=== PATIENT | male | born 1965 | race Hispanic/Latino ===

== ENCOUNTER → 2017-10-03 | Outpatient (CLI) | payer MEDICAID | LOC: SLR 11:00 | PROVIDERS: ATTEND Specialist | DX: G47.30 Sleep apnea, unspecified (principal) | CPT/HCPCS: 95810 ==

== ENCOUNTER 2017-10-31 06:22 | Day surgery (SDC) | payer MEDICAID ==
[2017-10-31] MEDS ORDERED: HURRICAINE ONE 20% TOPICAL SPRAY MM ×2 (07:35→07:54)
[2017-10-31] MEDS ORDERED: DIPRIVAN 10 MG/ML IV ONE ×2 (07:38)
[2017-10-31] MEDS ORDERED: XYLOCAINE 1% 20 mL ONE (07:39)
--- NOTE | 2017-10-31 07:50 | Anesthesia Day of Surgery ---
Anesthesia Day of Surgery - Day of Surgery Patient H&P Reviewed: Yes Patient is NPO: Yes Beta Blockers: Yes Cardiac Clearance: No Pulmonary Clearance: No Don's Test: N/A
--- NOTE | 2017-10-31 07:50 | Anesthesia Consultation ---
Anesthesia Consult and Med Hx Date of service: 10/31/17 - Airway Anesthetic Teeth Evaluation: Chipped ROM Head & Neck: Adequate Mental/Hyoid Distance: Inadequate Mallampati Class: Class II Intubation Access Assessment: Possibly Difficult - Pulmonary Exam CTA: Yes - Cardiac Exam Cardiac Exam: RRR - Pre-Operative Health Status ASA Pre-Surgery Classification: ASA3 Proposed Anesthetic Plan: General, IV Sedation - Pulmonary Hx Smoking: No Hx Asthma: No Hx Respiratory Symptoms: No SOB: No COPD: No Home Oxygen Therapy: No Hx Pneumonia: No Hx Sleep Apnea: No - Cardiovascular System Hx Hypertension: Yes Hx Coronary Artery Disease: Yes Hx Heart Attack/AMI: Yes (2013) Hx Angina: Yes Hx Percutaneous Transluminal Coronary Angioplasty (PTCA): No Hx Cardia Arrhythmia: No Hx Pacemaker: No Hx Internal Defibrillator: No Hx Valvular Heart Disease: No Hx Heart Murmur: No Hx Peripheral Vascular Disease: No - Central Nervous System Hx Neuromuscular Disorder: No Hx Seizures: No CVA: No Hx Back Pain: No Hx Psychiatric Problems: Yes - Gastrointestinal Hx Ulcer: No - Endocrine Hx Renal Disease: No Hx End Stage Renal Disease: No Hx Cirrhosis: No Hx Liver Disease: No Hx Insulin Dependent Diabetes: No Hx Non-Insulin Dependent Diabetes: Yes Hx Hyperthyroidism: Yes - Hematic Hx Anemia: No Hx Sickle Cell Disease: No - Other Systems Hx Alcohol Use: No Hx Substance Use: No Hx Cancer: No Hx Obesity: Yes
--- NOTE | 2017-10-31 07:54 | Post Anesthesia Evaluation ---
- Post Anesthesia Evaluation Airway Patent: Yes
[2017-10-31] MEDS ORDERED: NACL 0.9% 1000 ML 1,000 ML IV SCH (08:00)
--- NOTE | 2017-10-31 08:11 | Discharge Summary ---
Providers - Providers Attending physician: YONAS STONER Primary care physician: CAIN NAILS Hospitalization Reason for admission: egd Condition: Good Procedures: egd Hospital course: 52 y.o. male with hx of dyspepsia and morbid obesity presented to endoscopy for EGD. He tolerated the procedure well. Disposition: - TO HOME OR SELFCARE Core Measure Documentation - Palliative Care Palliative Care/ Comfort Measures: Not Applicable - Core Measures Any of the following diagnoses?: none Exam - Physical Exam Narrative exam: no change from prior - Constitutional Vitals: Temp Pulse Resp BP Pulse Ox 97.6 F 64 15 140/72 95 10/31/17 07:36 10/31/17 07:36 10/31/17 07:36 10/31/17 07:36 10/31/17 07:36 General appearance: Present: no acute distress Plan Activity: no restrictions, other (no driving today) Diet: other (2 weeks prior to surgery :high protein low carb. 2 days prior clear liquids) Additional Instructions: follow up for surgery. Follow up with: CAIN NAILS MD [Primary Care Provider] - 7 Days
--- NOTE | 2017-10-31 08:13 | Operative Report ---
Operative Report Operative Report: OPERATIVE REPORT - EGD DATE 10/31/17 SURGERY: Upper endoscopy. SURGEON: Dr. Cummings HEAD MECHANIC: Mely Paredes DO PRE OP DX: dyspepsia, morbid obesity POST OP DX: gastritis, duodenitis TYPE OF ANESTHESIA: MAC. ESTIMATED BLOOD LOSS: None. COMPLICATIONS: None. SPECIMENS REMOVED: None. FINDINGS: 1. Small hiatal hernia. 2. Otherwise, normal esophagus 3. gastritis 4. Duodenitis . INDICATIONS:INDICATION FOR PROCEDURE: Patient is a 52-year-old male with a long history of morbid obesity. He is planned to have a weight loss procedure and is here for preoperative planning EGD to assess the anatomy of his stomach. PROCEDURE DETAILS: After consent was reviewed, patient was taken back to the operating room where patient was placed in the left lateral decubitus position and a bite block was placed in the mouth. After a time-out was called, MAC anesthesia was initiated. I then passed the endoscope into the patients oropharynx, into the esophagus, visualized the entire esophagus, which was all within normal limits. I then visualized the stomach and the first portion of the duodenum which showed gastritis and duodenitits. I then retroflexed the scope in the stomach and visualized the hiatus and I could see a small hiatal hernia. I then desufflated the stomach and removed the endoscope. Patient tolerated procedure well and was transferred to recovery room in good and stable condition. If the patient is not currently on a PPI once will be prescribed for him.
[2017-10-31] MEDS ORDERED: WATER FOR IRRIG STERILE IR ONE (08:44)
[2017-10-31 08:59] VITALS: BP 132/70
== END 2017-10-31 06:23 | disposition home or self-care (01) ==
LOC: GIO 06:22
PROVIDERS: ATTEND Specialist
DX: K29.70 Gastritis, unspecified, without bleeding (principal); K29.80 Duodenitis without bleeding; E78.00 Pure hypercholesterolemia, unspecified; E78.5 Hyperlipidemia, unspecified; K44.9 Diaphragmatic hernia without obstruction or gangrene; I10 Essential (primary) hypertension; K21.9 Gastro-esophageal reflux disease without esophagitis; E03.9 Hypothyroidism, unspecified; E66.01 Morbid (severe) obesity due to excess calories; Z68.41 Body mass index [BMI] 40.0-44.9, adult; F31.9 Bipolar disorder, unspecified; Z83.3 Family history of diabetes mellitus; Z82.49 Family history of ischemic heart disease and other diseases of the circulatory system; Z79.82 Long term (current) use of aspirin; Z79.84 Long term (current) use of oral hypoglycemic drugs; Z79.899 Other long term (current) drug therapy; Z95.5 Presence of coronary angioplasty implant and graft
CPT/HCPCS: 43235; 82962; J2704; J7030

== ENCOUNTER 2017-11-07 08:04 | Inpatient (IN) | payer MEDICAID ==
[~2017-11-07 08:04] MED LIST: ANCEF/STERILE WATER 2 GM/20 ML 2 GM/20 ML SYRINGE IV NR; APRESOLINE IV PRN; FLAGYL 500 MG/100 ML 500 MG/100 ML BAG IV NR; LOVENOX SUB-Q NR; MORPHINE IV PRN; NORCO PO PRN; REGLAN IV PRN
[2017-11-07] MEDS ORDERED: NACL BACTERIOSTATIC INFILTRATI ONE (10:02)
--- NOTE | 2017-11-07 10:02 | Anesthesia Consultation ---
Anesthesia Consult and Med Hx Date of service: 11/07/17 - Airway Anesthetic Teeth Evaluation: Good ROM Head & Neck: Adequate Mental/Hyoid Distance: Adequate Mallampati Class: Class II Intubation Access Assessment: Probably Good - Pulmonary Exam CTA: Yes - Cardiac Exam Cardiac Exam: RRR - Pre-Operative Health Status ASA Pre-Surgery Classification: ASA3 Proposed Anesthetic Plan: General - Pulmonary Hx Smoking: No Hx Asthma: No Hx Respiratory Symptoms: No SOB: No COPD: No Hx Pneumonia: No Hx Sleep Apnea: No (SLEEP STUDY NEGATIVE) - Cardiovascular System Hx Hypertension: Yes (20 YEARS) Hx Coronary Artery Disease: Yes (> 4 METS) Hx Heart Attack/AMI: Yes (2012) Hx Percutaneous Transluminal Coronary Angioplasty (PTCA): Yes (stent x 1) Hx Cardia Arrhythmia: No Hx Pacemaker: No Hx Internal Defibrillator: No Hx Valvular Heart Disease: No Hx Heart Murmur: No Hx Peripheral Vascular Disease: No - Central Nervous System Hx Neuromuscular Disorder: Yes (essential tremor) Hx Seizures: No CVA: No Hx Back Pain: No Hx Psychiatric Problems: Yes - Gastrointestinal Hx Ulcer: No - Endocrine Hx Renal Disease: No Hx End Stage Renal Disease: No Hx Cirrhosis: No Hx Liver Disease: Yes (FATTY LIVER) Hx Insulin Dependent Diabetes: No Hx Non-Insulin Dependent Diabetes: Yes Hx Thyroid Disease: Yes Hx Hypothyroidism: Yes - Hematic Hx Anemia: No Hx Sickle Cell Disease: No - Other Systems Hx Alcohol Use: No Hx Substance Use: No Hx Cancer: No Hx Obesity: Yes
--- NOTE | 2017-11-07 10:07 | Anesthesia Day of Surgery ---
Anesthesia Day of Surgery - Day of Surgery Patient Examined: Yes Patient H&P Reviewed: Yes Patient is NPO: Yes Beta Blockers: Yes
[2017-11-07] MEDS ORDERED: SUBLIMAZE ONE (10:14)
[2017-11-07] MEDS ORDERED: DIPRIVAN 10 MG/ML IV ONE ×2 (10:14)
[2017-11-07] MEDS ORDERED: QUELICIN ONE (10:14)
[2017-11-07] MEDS ORDERED: XYLOCAINE MPF 2% ONE (10:14)
[2017-11-07] MEDS ORDERED: ZEMURON IV ONE (10:14)
[2017-11-07] MEDS: LACTATED RINGERS 1,000 ML IV SCH ×2 (10:15→20:52)
[2017-11-07] MEDS ORDERED: PEPCID IV NR (10:30)
[2017-11-07] MEDS ORDERED: PEPCID IV ONE (10:31)
[2017-11-07] MEDS ORDERED: XYLOCAINE 1% 20 mL ONE (10:31)
[2017-11-07] MEDS ORDERED: MARCAINE-EPI 0.5%-1:200,000 INFILTRATI ONE ×2 (10:31→10:45)
[2017-11-07] MEDS ORDERED: NACL 0.9% IR ONE (10:45)
[2017-11-07] MEDS ORDERED: XYLOCAINE 1% 20 mL INFILTRATI ONE (10:45)
[2017-11-07] MEDS ORDERED: DILAUDID ONE (11:26)
[2017-11-07] MEDS ORDERED: ZOFRAN ONE (11:58)
[2017-11-07] MEDS ORDERED: NEOSTIGMINE ONE (11:58)
[2017-11-07] MEDS ORDERED: ROBINUL ONE ×2 (11:59)
[2017-11-07] MEDS ORDERED: TRANSDERM-SCOP TD SCH (12:00)
[2017-11-07] MEDS ORDERED: LACTATED RINGERS 1,000 ML ONE (13:07)
--- NOTE | 2017-11-07 13:28 | Operative Report ---
Operative Report Operative Report: Operative Report DATE OF PROCEDURE: 11/07/17 PREOPERATIVE DIAGNOSES: Morbid obesity, hiatal hernia POSTOPERATIVE DIAGNOSES: 1.same as pre-op SURGEON: Dr. Cummings DIGITIZER: Cain Bill DO, CST PROCEDURE: 1. laparoscopic sleeve gastrectomy 2. laparoscopic hiatal hernia repair ANESTHESIA: General. ESTIMATED BLOOD LOSS: <5 mL. COMPLICATIONS: None. SPECIMEN: Partial gastrectomy. FINDINGS: 1. hiatal hernia INDICATION FOR PROCEDURE: Patient is 52 year-old M with a long history of morbid obesity. 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 Pt is here today for sleeve gastrectomy. PROCEDURE IN DETAIL: After consent was reviewed, patient was taken back to the operating room, where patient was placed supine on the bed with both arms out. The patient's legs were doubly strapped to the bed. Patient had a foot board in place. Patient had a body warmer placed by anesthesia. Patient was then prepped and draped in normal sterile surgical fashion. After a time-out was called, I made a stab incision in the umbilicus and placed a Veress needle through this incision and insufflated the abdomen. Proper insuflation could not be accomplished, therefore, a stab incision was made in the left upper quadrant and the veress was palced into the abdomen and insulflated to 18 mmHg pressure. Once the abdomen was adequately insuflated I widened the umbical incision were the veress had been placed and inserted a 15mm trocar. I then placed a 45- degree scope through this port and inspected the abdomen. There was no injury on entry of the abdomen. I then placed two 5-mm ports in the right upper quadrant, one along the anterior axillary line and 1 subxiphoid below the costovertebral angle. I then placed left upper quadrant port along the anterior axillary line in a similar fashion. I then placed the liver retractor through the subxiphoid port and placed the patient in full reverse Trendelenburg. The right and left crura were skeletonized accentuating a small hiatal hernia. An anterior cruraplasty was perfromed with a figure-of-8 stitch using endostitch with 0 ethibond suture to reapproximate the crura. I then identified the pylorus and then counted off 6cm from the pylorus. I then used a LigaSure cutting device to enter into the lesser sac. At that point and then I took down the short gastrics all the way up to the left matilda. Then I had anesthesia pass down a 40 [place] bougie along the lesser curvature of the stomach. I made sure everything else was out of the abdomen except the bougie. I then created my gastric sleeve using a 60-mm laparoscopic stapler. The sleeve looked good without any twisting or torsion. I then had anesthesia to remove the bougie. Hemostasis was obtained along the staple line with electrocautery and a few 10mm clips. I then removed liver grasper and took it off the field. I then removed the stomach through the 15-mm umbilcal port. I then closed that fascia with a #1 PDS in a [id number] fashion using a Shayan-Nikia. I then desufflated the abdomen and then removed all port sites. I then closed the incisions with 4-0 Monocryl in subcuticular fashion. I then dressed the wounds with steristrips, gauze and tegaderms. Patient tolerated the procedure well and was transferred to recovery room in good and stable condition
[2017-11-07] MEDS: SUBLIMAZE IV PRN ×2 (13:43→14:10)
--- NOTE | 2017-11-07 13:54 | Post Anesthesia Evaluation ---
- Post Anesthesia Evaluation Patient Participated: Yes Airway Patent: Yes Stable Respiratory Function: Yes Nausea/Vomiting: No Temp > 96.8F: Yes Pain Manageable: Yes Adequeate Hydration: Yes Anesthesia Complications: No Block Receding Appropriately: Not Applicable Patient on Ventilator: No
[2017-11-07] MEDS: MYLICON PO PRN (17:20)
[2017-11-07] MEDS: DILAUDID IV PRN ×3 (17:20→23:59)
[2017-11-07] MEDS ORDERED: MYSOLINE PO SCH (22:00)
[2017-11-07] MEDS: LaMICtal PO SCH (23:42)
[2017-11-07] MEDS: ESKALITH PO SCH (23:43)
[2017-11-07] MEDS: INDERAL PO SCH (23:43)
[2017-11-08] MEDS: LACTATED RINGERS 1,000 ML IV SCH ×2 (03:41→09:42)
[2017-11-08] MEDS ORDERED: DILAUDID IV PRN ×3 (05:00→10:00)
[2017-11-08 05:02] LABS: Basophils % (Auto) 0.4 % (0.0-1.8); Eosinophils % (Auto) 0.2 % (0.0-4.3); Hemoglobin 13.9 gm/dl (11.8-15.2); Lymphocytes # (Auto) 1.4 K/mm3 (1.2-5.4); Lymphocytes % (Auto) 13.2 % (13.4-35.0); Mean Corpuscular HGB Conc 33 % (32-34); Mean Corpuscular Hemoglobin 32 pg (28-32); Mean Corpuscular Volume 96 fl (84-94); Monocytes # (Auto) 0.8 K/mm3 (0.0-0.8); Monocytes % (Auto) 7.3 % (0.0-7.3); Platelet Count 244 K/mm3 (140-440); Red Blood Count 4.39 M/mm3 (3.65-5.03); Red Cell Distribution Width 12.9 % (13.2-15.2)
[2017-11-08] MEDS: ZOFRAN IV PRN ×2 (05:05→09:25)
[2017-11-08 05:16] LABS: BUN/Creatinine Ratio 12; Blood Urea Nitrogen 12 mg/dL (9-20); Calcium 9.1 mg/dL (8.4-10.2); Hemolysis Index 5
[2017-11-08] MEDS ORDERED: SYNTHROID PO SCH (06:00)
[2017-11-08] MEDS: MYLICON PO PRN (09:25)
[2017-11-08] MEDS: ESKALITH PO SCH (09:27)
[2017-11-08] MEDS: LaMICtal PO SCH (09:27)
[2017-11-08] MEDS: INDERAL PO SCH (09:28)
[2017-11-08] MEDS ORDERED: LOVENOX SUB-Q SCH (10:00)
[2017-11-08] MEDS ORDERED: celeXA PO SCH (10:00)
[2017-11-08] MEDS ORDERED: MYSOLINE PO SCH (10:00)
[2017-11-08 11:28] LABS: Basophils % (Auto) 0.3 % (0.0-1.8); Eosinophils % (Auto) 0.3 % (0.0-4.3); Hematocrit 39.7 % (35.5-45.6); Hemoglobin 13.8 gm/dl (11.8-15.2); Lymphocytes # (Auto) 1.2 K/mm3 (1.2-5.4); Lymphocytes % (Auto) 11.7 % (13.4-35.0); Mean Corpuscular HGB Conc 35 % (32-34); Mean Corpuscular Hemoglobin 33 pg (28-32); Mean Corpuscular Volume 94 fl (84-94); Monocytes # (Auto) 0.9 K/mm3 (0.0-0.8); Monocytes % (Auto) 8.4 % (0.0-7.3); Platelet Count 244 K/mm3 (140-440); Red Blood Count 4.21 M/mm3 (3.65-5.03); Red Cell Distribution Width 12.6 % (13.2-15.2)
--- NOTE | 2017-11-08 13:17 | Discharge Summary ---
Providers - Providers Date of Admission: 11/07/17 08:30 Date of discharge: 11/08/17 Attending physician: YONAS STONER Primary care physician: CAIN NAILS Hospitalization Reason for admission: Morbid Obesity Condition: Stable Procedures: Laproscopic gastric sleeve and hiatal hernia repair Hospital course: Pt. is a 52 y.o. male with a Hx of morbid obesity. Pt. has tried multiple efforts with weight loss and failed to achieve success. Pt presented at 11/07 for lap gastric sleeve for weight loss. Pt. had and uneventful lap sleeve gastrectomy with hiatal hernia repair done on 11/07. On 11/08, Pt. complained of left shoulder pain, pain is 4/10 normally and exacerbated with arm movement to 8 /10, pain is new onset and it has never happened before. An xr of his left shoulder was ordered but pt refused the test. He told the nurse he wishes to follow up with his pcp. On the day of discharge, pt. reports minor nausea with no vomiting, +flatus, +ambulation. Pt. is in stable condition with no fevers or chills. Pt. remains afebrile and has no leukocytosis. Pt will be given the information for an ortho referral if needed for the left shoulder. Disposition: -01 TO HOME OR SELFCARE - Discharge Diagnoses (1) Morbid obesity Status: Acute Core Measure Documentation - Palliative Care Palliative Care/ Comfort Measures: Not Applicable - Core Measures Any of the following diagnoses?: none Exam - Constitutional Vitals: Temp Pulse Resp BP Pulse Ox 98.4 F 80 20 143/81 93 11/08/17 12:19 11/08/17 12:19 11/08/17 12:19 11/08/17 12:19 11/08/17 12:19 General appearance: Present: no acute distress, well-nourished, obese - Respiratory Respiratory effort: normal Respiratory: bilateral: CTA, negative: diminished, rales, rhonchi, wheezing, other - Cardiovascular Rhythm: regular Heart Sounds: Present: S1 & S2 - Extremities Extremities: no ischemia, pulses intact, No edema Extremity abnormal: other (Focal tenderness at the left anterolateral shoulder with palpation. Pain with active elevation of the left shoulder past 90 degrees. Positive left shoulder empty can test) Peripheral Pulses: within normal limits - Abdominal General gastrointestinal: Present: soft, tender (epigastric tenderness with light palpation), non-distended, normal bowel sounds, other (no garuding, no rebound. incisions sites: dressings with minimal blood stained. ) Male genitourinary: Present: deferred - Rectal Rectal Exam: deferred - Integumentary Integumentary: Present: clear, warm, normal turgor - Psychiatric Psychiatric: appropriate mood/affect Plan Diet: clear liquids, other (sugar free clears. Advance diet per bariatric handout. No lifting >15lbs for 6 weeks. Goal fluid intake is 64oz a day. Goal protein intake is 60g a day. You may sleep 4 hrs at night but must get up and walk. ) Wound: keep clean and dry Additional Instructions: Keep dressings clean and dry until follow up in the office for your wound check. You may restart your plavix Monday, . You must walk often. At night you can sleep for 4 hrs then wake up and walk and then go back to sleep. You must walk once every 1-2hrs. Goal fluid intake is 64oz a day. Goal protein intake is 60g a day. Remember to take a bariatric multivitamin. Crush medications. continue to take carafate and omeprazole for one more week. An orthopedics doctor information has been provided if your shoulder continues to have pain and decreased movement. Follow up with: CAIN NAILS MD [Primary Care Provider] - [address] MD [Staff Physician] - 14 Days (Follow up as needed if left shoulder continues to have lack of movement or pain. Xrays were refused in the hospital )
[2017-11-08] MEDS ORDERED: CARAFATE PO SCH (18:00)
[2017-11-08 20:09] VITALS: BP 138/74
== END 2017-11-08 18:30 | disposition home or self-care (01) | DRG 327 ==
LOC: 3A 08:30 → 3B-SURG 15:14
PROVIDERS: ADMIT Specialist; ATTEND Specialist
PROC: 0DB64Z3 Excision of Stomach, Percutaneous Endoscopic Approach, Vertical (ICD-10-PCS; principal; 2017-11-07)
PROC: 0BQT4ZZ Repair Diaphragm, Percutaneous Endoscopic Approach (ICD-10-PCS; 2017-11-07)
DX: K44.9 Diaphragmatic hernia without obstruction or gangrene (principal); Z68.41 Body mass index [BMI] 40.0-44.9, adult; E66.01 Morbid (severe) obesity due to excess calories; I10 Essential (primary) hypertension; I25.10 Atherosclerotic heart disease of native coronary artery without angina pectoris; E03.9 Hypothyroidism, unspecified; K76.0 Fatty (change of) liver, not elsewhere classified; F31.9 Bipolar disorder, unspecified; E78.00 Pure hypercholesterolemia, unspecified; E11.9 Type 2 diabetes mellitus without complications; Z88.8 Allergy status to other drugs, medicaments and biological substances; Z81.8 Family history of other mental and behavioral disorders; Z83.3 Family history of diabetes mellitus; Z82.49 Family history of ischemic heart disease and other diseases of the circulatory system; Z71.3 Dietary counseling and surveillance; I25.2 Old myocardial infarction; Z83.42 Family history of familial hypercholesterolemia; Z95.5 Presence of coronary angioplasty implant and graft
CPT/HCPCS: 36415; 80048; 82962; 85025; 88307; 94760; J0330; J0360; J0690; J1170; J1650; J2405; J2704; J2710; J2765; J3010; J7120